=== PATIENT | female | born 1995 | race Caucasian/White ===

== ENCOUNTER 2021-10-05 17:10 | Inpatient (IN) ==
[2021-10-05 17:48] LABS: Appearance Urine Clear (Clear); Bacteria Urine Automated 1+ (Negative); Bilirubin Urine Negative (Negative); Blood Urine Negative (Negative); Color Urine Yellow; Epithelial Cell Urine Auto >30 /lpf (0-5); Glucose Urine UA Negative (Negative); Ketones Urine Negative (Negative); Leukocyte Esterase Urine Trace (Negative); Nitrite Urine Negative (Negative); Protein Urine Negative (Negative); RBC Urine Automated 0-4 /hpf (0-4); Specific Gravity Urine 1.014 (1.000-1.030); Urobilinogen Urine Negative (Negative)
[2021-10-05 18:05] LABS: Basophils # (auto) 0.02 K/uL (0-0.2); Basophils % (auto) 0.2 %; Eosinophils # (auto) 0.03 K/uL (0-0.5); Eosinophils % (auto) 0.3 %; Hematocrit (blood only) 38.1 % (37-47); Hemoglobin 12.9 g/dL (12.0-16.0); Immature Granulocytes # (auto) 0.01 K/uL (0.00-0.02); Immature Granulocytes % (auto) 0.1 %; Lymphocytes # (auto) 1.61 K/uL (1.2-3.4); Lymphocytes % (auto) 16.9 %; Mean Corpuscular Hemoglobin 30.1 pg (25-34); Mean Corpuscular Hgb Conc 33.9 g/dL (32-36); Mean Platelet Volume 10.6 fL (7.4-10.4); Monocytes # (auto) 0.64 K/uL (0.11-0.59); Monocytes % (auto) 6.7 %; Neutrophils # (auto) 7.22 K/uL (1.4-6.5); Neutrophils % (auto) 75.8 %; Platelet Count 225 K/uL (130-400); RDW Coefficient of Variation 13.2 % (11.5-14.5); Red Blood Count 4.28 M/uL (4.2-5.4); White Blood Count 9.53 K/uL (4.8-10.8)
[2021-10-05 18:18] LABS: Amphetamines+Metham, Urine Neg (Neg); Barbiturates, Urine Neg (Neg); Benzodiazepine, Urine Neg (Neg); Cocaine, Urine Neg (Neg); MDMA (Ecstacy), Urine Neg (Neg); Methadone, Urine Neg (Neg); Opiate, Urine Neg (Neg); Phencyclidine, Urine Neg (Neg)
[2021-10-05 18:24] LABS: Alanine Aminotransferase 12 U/L (7-52); Albumin Globulin Ratio 1.6 (0.9-2); Albumin Level 4.2 gm/dl (3.4-5.0); Alkaline Phosphatase 40 U/L (34-104); Anion Gap 6 (3-11); Aspartate Aminotransferase 15 U/L (13-39); Bilirubin,Total 0.3 mg/dl (0.2-1.0); Blood Urea Nitrogen 12 mg/dl (6-23); Calcium 9.1 mg/dl (8.5-10.1); Carbon Dioxide 24 mmol/L (21-32); Chloride 105 mmol/L (98-107); Est GFR (African American) 147.9 ml/min; Est GFR (Non-African American) 127.6 ml/min; Globulin 2.6 gm/dl (2.5-4.0); Glucose 88 mg/dl (70-99(Fasting)); Potassium 3.4 mmol/L (3.5-5.1); Sodium 135 mmol/L (136-145); Total Protein 6.8 gm/dl (6.0-8.3)
[2021-10-05 18:26] LABS: Acetaminophen < 3 ug/ml (10-30); Salicylate < 3.0 mg/dl (3.0-30)
[2021-10-05 18:31] LABS: Pregnancy Test, Urine Positive (Negative)
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
[2021-10-05] MEDS ORDERED: diphenhydrAMINE 50 MG/ML VIAL IV PRN (19:16)
[2021-10-05] MEDS ORDERED: diphenhydrAMINE 50 MG/ML VIAL IM PRN (19:26)
[2021-10-05] MEDS ORDERED: OLANZapine 10 MG/2.1 ML SDV IM STA (19:28)
[2021-10-05] MEDS ORDERED: diphenhydrAMINE Capsule 25 MG CAP PO ONE (22:32)
[2021-10-05] MEDS ORDERED: OLANZapine 5 MG TABLET PO STA (22:32)
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
[2021-10-06] MEDS ORDERED: NICOTINE POLACRILEX 2 MG GUM MT PRN (12:48)
[2021-10-06] MEDS ORDERED: SODIUM CHLORIDE 0.65% NA SOLN 45 ML (OCEAN) PRN (13:54)
[2021-10-06] MEDS ORDERED: ACETAMINOPHEN 325 MG TAB PO PRN (13:54)
[2021-10-06] MEDS ORDERED: ALUMINUM/MAGNESIUM SUSP 30 ML UDC PO PRN (13:54)
[2021-10-06] MEDS ORDERED: diphenhydrAMINE Capsule 25 MG CAP PO PRN (13:54)
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
[2021-10-06] MEDS: NICOTINE POLACRILEX 2 MG GUM MT PRN ×3 (15:11→21:59)
[2021-10-07] MEDS: NICOTINE POLACRILEX 2 MG GUM MT PRN (07:41)
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
[2021-10-08 08:11] LABS: Marijuana Quant, GCMS Urine 781 ng/mL (<5)
--- NOTE | 2021-11-26 14:30 | Coding Query ---
PSYCHIATRIC/ CONDITION Please clarify below if complicated the reason for visit for this admission: ( ) did not complicate visit and was incidental to the reason for visit ( X ) did complicate the reason for visit ( ) Other, please clarify: Thank you for your assistance, Sandee Key - Wood Turner MARY
== END 2021-10-07 13:10 | disposition home or self-care (01) | DRG 833 ==
LOC: ED 17:10 → 3S 10-06 14:14